=== PATIENT | male | born 1960 | race African-American/Black ===

== ENCOUNTER 2017-08-23 11:19 | Emergency (ER) | payer MEDICAID ==
[~2017-08-23] VITALS: Ht 180.3 cm; Wt 86.5 kg
[~2017-08-23 11:19] MED LIST: ADDE10 PO; ASPI81 PO; CLON1 PO; LISI-662 PO
[2017-08-23] MEDS ORDERED: KETOROLAC TROMETHAMINE 60 MG/2 ML VIAL IM ONE (13:15)
[2017-08-23 15:15] VITALS: BP 138/86
== END 2017-08-23 15:23 | disposition home or self-care (01) ==
LOC: EMS 11:20
DX: S46.001A Unspecified injury of muscle(s) and tendon(s) of the rotator cuff of right shoulder, initial encounter (principal); I10 Essential (primary) hypertension; F17.210 Nicotine dependence, cigarettes, uncomplicated; F12.90 Cannabis use, unspecified, uncomplicated; W01.0XXA Fall on same level from slipping, tripping and stumbling without subsequent striking against object, initial encounter; Y93.02 Activity, running; Y92.828 Other wilderness area as the place of occurrence of the external cause; Y99.8 Other external cause status
CPT/HCPCS: 73030; 96372; 99284; J1885

== ENCOUNTER 2018-08-12 19:25 | Emergency (ER) | payer MEDICAID ==
[~2018-08-12] VITALS: Ht 182.9 cm; Wt 93.0 kg
[~2018-08-12 19:25] MED LIST changes: -ADDE10 PO; -ASPI81 PO; -CLON1 PO
[2018-08-12] MEDS ORDERED: LIDOCAINE 1% 20 ML VIAL *UNAVILABLE INJ ONE (19:45)
[2018-08-12] MEDS: PERTUSS(ACELL),DIPH,TET VAC/PF 0.5 ML VIAL IM ONE (19:50)
[2018-08-12 19:51] LABS: BASOPHILS % (AUTO) 0.9 % (0.0-2.0); EOSINOPHILS % (AUTO) 3.6 % (1.0-6.0); HEMATOCRIT 41.2 % (41-53); HEMOGLOBIN 14.3 g/dL (13.5-17.5); LYMPHOCYTES # (AUTO) 2.7 K/uL (1.0-4.8); LYMPHOCYTES % (AUTO) 35.8 % (22.0-44.0); MEAN CORPUSCULAR HEMOGLOBIN 31.7 pg (26.0-34.0); MEAN CORPUSCULAR HGB CONC 34.7 G/dL (31.0-37.0); MEAN CORPUSCULAR VOLUME 91 fL (80-100); MONOCYTES # (AUTO) 0.9 K/uL (0.1-1.0); MONOCYTES % (AUTO) 11.7 % (2.0-9.0); NEUTROPHILS # (AUTO) 3.7 K/uL (1.8-7.7); PLATELET COUNT (AUTO) 228 K/uL (150-450); RED BLOOD CELL COUNT(AUTO) 4.52 MIL/uL (4.50-5.90); RED CELL DISTRIBUTION WIDTH 12.6 % (11.5-14.5)
[2018-08-12] MEDS: SODIUM CHLORIDE 0.9% 1,000 ML IV ONE (19:51)
[2018-08-12] MEDS: LIDOCAINE 1% 10 ML VIAL INJ ONE (19:51)
[2018-08-12] MEDS: CeFAZolin 1 GM/DEXTROSE 50 ML IV ONE (20:00)
[2018-08-12 20:01] LABS: ANION GAP 13 mmol/L (8-16); CALCIUM, TOTAL 8.8 mg/dL (8.8-10.5); CARBON DIOXIDE 26 mmol/L (22-29); CHLORIDE 108 mmol/L (98-107); CREATININE 1.02 mg/dL (0.60-1.30); GLOMERULAR FILTR. RATE CALC > 60 mL/min (>60); GLUCOSE,RANDOM 128 mg/dL (70-110); POTASSIUM 3.4 mmol/L (3.5-5.1); SODIUM SERUM 147 mmol/L (136-145); UREA NITROGEN, BLOOD 15 mg/dL (7-18)
[2018-08-12 20:06] LABS: ALANINE AMINOTRANSFERASE 102 U/L (12-78); ALBUMIN 3.8 g/dL (3.4-5.0); ALKALINE PHOSPHATASE 131 U/L (46-116); ASPARTATE AMINOTRANSFERASE 76 U/L (15-37); BILIRUBIN,TOTAL 0.6 mg/dL (0.1-1.0); TOTAL PROTEIN, SERUM 7.9 g/dL (6.4-8.2)
[2018-08-12 20:12] LABS: PROTHROMBIN TIME 10.3 SEC (9.4-11.6)
[2018-08-12] MEDS: HYDROCODONE/ACETAMINOPHEN 5-325 MG TABLET PO ONE (21:10)
[2018-08-12] MEDS: POTASSIUM CHLORIDE 20 MEQ ER TABLET PO ONE (21:24)
[2018-08-12 23:27] VITALS: BP 138/85
== END 2018-08-13 00:10 | disposition home or self-care (01) ==
LOC: EMS 19:26
DX: S61.411A Laceration without foreign body of right hand, initial encounter (principal); I10 Essential (primary) hypertension; F12.90 Cannabis use, unspecified, uncomplicated; F17.210 Nicotine dependence, cigarettes, uncomplicated; W45.8XXA Other foreign body or object entering through skin, initial encounter; Y93.89 Activity, other specified; Y92.89 Other specified places as the place of occurrence of the external cause; Y99.8 Other external cause status
CPT/HCPCS: 12002; 36415; 73130; 80053; 85025; 85610; 85730; 90471; 90715; 96365; 99285; G0480; J0690; J3490; J7030

== ENCOUNTER 2021-12-02 00:04 | Emergency (ER) | payer MEDICAID, OTHER ==
[~2021-12-02] VITALS: Ht 182.9 cm; Wt 77.3 kg
[~2021-12-02 00:04] MED LIST changes: -LISI-662 PO; +LISI-894 PO
[2021-12-02 00:50] VITALS: BP 147/86
[2021-12-02] MEDS ORDERED: OLANZapine 5 MG TABLET PO ONE (01:15)
[2021-12-02 01:21] LABS: GLUCOMETER DEV NAME(LOC) ERT.5; GLUCOSE,POINT OF CARE 116 MG/DL (70-110)
== END 2021-12-02 01:28 | disposition home or self-care (01) ==
LOC: EMS 00:07
DX: F25.0 Schizoaffective disorder, bipolar type (principal); I10 Essential (primary) hypertension; F12.90 Cannabis use, unspecified, uncomplicated; F17.210 Nicotine dependence, cigarettes, uncomplicated; Z76.0 Encounter for issue of repeat prescription
CPT/HCPCS: 82962; 99283

== ENCOUNTER 2024-12-25 16:38 | Emergency (ER) | payer SELFPAY ==
[~2024-12-25] VITALS: Ht 182.9 cm; Wt 81.8 kg
[2024-12-25] MEDS ORDERED: METF-1211 PO (16:54)
[2024-12-25] MEDS ORDERED: BUPR1TAB45 SL (16:54)
[2024-12-25 17:12] VITALS: TEMP 98
[2024-12-25] MEDS: ACETAMINOPHEN 500 MG TABLET PO ONE (17:51)
[2024-12-25 18:54] VITALS: BP 150/93; PULSE 82; RESP 18; O2SAT 98
== END 2024-12-25 18:58 | disposition home or self-care (01) ==
LOC: EMS 16:38
DX: S09.90XA Unspecified injury of head, initial encounter (principal); E11.9 Type 2 diabetes mellitus without complications; F12.90 Cannabis use, unspecified, uncomplicated; I10 Essential (primary) hypertension; F17.210 Nicotine dependence, cigarettes, uncomplicated; Z02.89 Encounter for other administrative examinations; Z79.84 Long term (current) use of oral hypoglycemic drugs; Z79.899 Other long term (current) drug therapy; W19.XXXA Unspecified fall, initial encounter; Y93.89 Activity, other specified; Y92.89 Other specified places as the place of occurrence of the external cause; Y99.8 Other external cause status
CPT/HCPCS: 70450; 72125; 99284

== ENCOUNTER 2025-03-25 16:32 | Inpatient (IN) | payer MEDICAID ==
[~2025-03-25] VITALS: Ht 182.9 cm; Wt 81.5 kg
[~2025-03-25 16:32] MED LIST changes: +BUPR1TAB45 SL; +METF-1211 PO
[2025-03-25] MEDS: SODIUM CHLORIDE 0.9% 1,000 ML IV ONE (17:34)
[2025-03-25] MEDS: NITROGLYCERIN 2% (1 GM=INCH) OINTMENT PACKET TP ONE (17:34)
[2025-03-25 17:53] LABS: BASOPHILS % (AUTO) 0.3 % (0.0-2.0); EOSINOPHILS % (AUTO) 0.1 % (1.0-6.0); HEMOGLOBIN 15.7 g/dL (13.5-17.5); LYMPHOCYTES # (AUTO) 1.1 K/uL (1.0-4.8); LYMPHOCYTES % (AUTO) 12.2 % (22.0-44.0); MEAN CORPUSCULAR HEMOGLOBIN 29.3 pg (26.0-34.0); MEAN CORPUSCULAR HGB CONC 32.8 G/dL (31.0-37.0); MEAN CORPUSCULAR VOLUME 89 fL (80-100); MONOCYTES # (AUTO) 0.4 K/uL (0.1-1.0); MONOCYTES % (AUTO) 4.9 % (2.0-9.0); NEUTROPHILS # (AUTO) 7.2 K/uL (1.8-7.7); NEUTROPHILS % (AUTO) 82.5 % (40.0-70.0); PLATELET COUNT (AUTO) 278 K/uL (150-450); RED BLOOD CELL COUNT(AUTO) 5.36 MIL/uL (4.50-5.90); RED CELL DISTRIBUTION WIDTH 13.9 % (11.5-14.5); WHITE BLOOD COUNT (AUTO) 8.7 K/uL (4.5-11.0)
[2025-03-25 17:56] LABS: ANION GAP 9 mmol/L (8-16); CALCIUM, TOTAL 9.7 mg/dL (8.8-10.5); CARBON DIOXIDE 28 mmol/L (22-29); CHLORIDE 97 mmol/L (98-107); CREATININE 0.84 mg/dL (0.60-1.30); GLOMERULAR FILTR. RATE CALC > 60 mL/min (>60); GLUCOSE,RANDOM 134 mg/dL (70-110); POTASSIUM 3.5 mmol/L (3.5-5.1); SODIUM SERUM 134 mmol/L (136-145); UREA NITROGEN, BLOOD 8 mg/dL (7-18)
[2025-03-25 18:01] LABS: GLUCOMETER DEV NAME(LOC) ER.7; GLUCOSE,POINT OF CARE 129 MG/DL (70-110)
[2025-03-25 18:02] LABS: ALBUMIN 3.6 g/dL (3.4-5.0); BILIRUBIN,DIRECT 0.2 mg/dL (0.00-0.20); BILIRUBIN,TOTAL 0.7 mg/dL (0.1-1.0); TOTAL PROTEIN, SERUM 8.3 g/dL (6.4-8.2)
[2025-03-25 18:05] LABS: PROTHROMBIN TIME 10.9 SEC (9.4-11.6)
[2025-03-25 18:09] LABS: CREATINE KINASE, TOTAL ONLY 372 U/L (39-308); TROPONIN I-HIGH SENSITIVITY 19 ng/L (<76)
[2025-03-25 18:09] LABS: LACTIC ACID 1.3 mmol/L (0.4-2.0)
[2025-03-25 18:14] LABS: B-TYPE NATRIURETIC PEPTIDE 162 pg/mL (0-100)
[2025-03-25] MEDS: BUPRENORPHINE HCL/NALOXONE HCL 2-0.5 MG SUBLINGUAL TABLET SL ONE (18:22)
[2025-03-25 19:07] LABS: APPEARANCE,URINE CLEAR (CLEAR); BILIRUBIN,URINE NEGATIVE (NEGATIVE); COLOR,URINE LIGHT YELLOW (YELLOW); GLUCOSE, URINE (UA) NEGATIVE (NEGATIVE); LEUKOCYTE ESTERASE ,URINE SMALL (NEGATIVE); NITRATE,URINE NEGATIVE (NEGATIVE); OCCULT BLOOD,URINE NEGATIVE (NEGATIVE); PH,URINE 6.5 (5.0-8.0); PROTEIN,URINE NEGATIVE (NEGATIVE); SPECIFIC GRAVITIY, URINE 1.017 (1.003-1.030); UROBILINOGEN,URINE <=1.0 mg/dL (<=1.0)
[2025-03-25 19:09] LABS: PH,URINE DRUG SCREEN 6.5 (5.0-8.0)
[2025-03-25 19:13] LABS: ALCOHOL, URINE DRUG SCREEN NEGATIVE (NEGATIVE); AMPHET/METH SCREEN,URINE POSITIVE (NEGATIVE); BARBITURATE SCREEN, URINE NEGATIVE (NEGATIVE); BENZODIAZEPINES SCREEN,URINE NEGATIVE (NEGATIVE); CANNABINOID SCREEN,URINE NEGATIVE (NEGATIVE); COCAINE SCREEN,URINE NEGATIVE (NEGATIVE); METHADONE SCREEN, URINE NEGATIVE (NEGATIVE); OPIATE SCREEN,URINE NEGATIVE (NEGATIVE); PHENCYCLIDINE SCREEN,URINE NEGATIVE (NEGATIVE)
[2025-03-25 19:22] LABS: RBC,URINE 0-2 /HPF (0-2)
[2025-03-25 19:23] LABS: BACTERIA,URINE Few /HPF (None Seen)
[2025-03-25 19:30] LABS: SQUAMOUS EPITHELIAL CELL,UR Few /LPF (None Seen)
[2025-03-25 19:31] LABS: URINALYSIS COMMENT Rare Trich. seen.
[2025-03-25] MEDS ORDERED: ONDANSETRON HCL 4 MG/2 ML VIAL IVP PRN (21:15)
[2025-03-25] MEDS: LABETALOL HCL 100 MG TABLET PO SCH (21:45)
[2025-03-25] MEDS: ATORVASTATIN CALCIUM 40 MG TABLET PO ONE (21:45)
[2025-03-25] MEDS: ASPIRIN 81 MG CHEWABLE TABLET PO SCH (21:45)
[2025-03-25 22:30] VITALS: BP 147/61; PULSE 62; RESP 17; TEMP 98.4; O2SAT 97
[2025-03-25] MEDS ORDERED: NALOXONE HCL 1 MG/ML 2 ML SYRINGE IVP PRN ×2 (22:45)
[2025-03-25] MEDS ORDERED: DEXTROSE 50%-WATER 25 GM/50 ML SYRINGE IVP PRN (23:00)
[2025-03-25] MEDS: HEPARIN SODIUM,PORCINE 5,000 UNITS/ML VIAL SQ SCH (23:50)
[2025-03-25] MEDS: INSULIN LISPRO 100 UNITS/ML SQ PRN (23:54)
[2025-03-26 00:09] VITALS: BP 155/63; PULSE 62; RESP 18; TEMP 98.4; O2SAT 98
[2025-03-26 00:09] LABS: TROPONIN I-HIGH SENSITIVITY 21 ng/L (<76)
[2025-03-26] MEDS: NALOXONE HCL 0.4 MG/ML VIAL SQ ONE (00:29)
[2025-03-26 04:39] VITALS: BP 150/79; PULSE 82; RESP 16; TEMP 98.6; O2SAT 99
[2025-03-26] MEDS: ACETAMINOPHEN 325 MG TABLET PO PRN (06:20)
[2025-03-26 06:51] LABS: BASOPHILS % (AUTO) 0.8 % (0.0-2.0); EOSINOPHILS % (AUTO) 0.2 % (1.0-6.0); HEMATOCRIT 44.1 % (41-53); HEMOGLOBIN 14.6 g/dL (13.5-17.5); LYMPHOCYTES # (AUTO) 1.2 K/uL (1.0-4.8); LYMPHOCYTES % (AUTO) 17.9 % (22.0-44.0); MEAN CORPUSCULAR HEMOGLOBIN 29.2 pg (26.0-34.0); MEAN CORPUSCULAR HGB CONC 33.1 G/dL (31.0-37.0); MEAN CORPUSCULAR VOLUME 88 fL (80-100); MONOCYTES # (AUTO) 0.6 K/uL (0.1-1.0); MONOCYTES % (AUTO) 8.2 % (2.0-9.0); NEUTROPHILS % (AUTO) 72.9 % (40.0-70.0); PLATELET COUNT (AUTO) 282 K/uL (150-450); RED BLOOD CELL COUNT(AUTO) 4.99 MIL/uL (4.50-5.90); RED CELL DISTRIBUTION WIDTH 13.8 % (11.5-14.5); WHITE BLOOD COUNT (AUTO) 6.9 K/uL (4.5-11.0)
[2025-03-26 07:08] LABS: ANION GAP 9 mmol/L (8-16); CALCIUM, TOTAL 9.5 mg/dL (8.8-10.5); CARBON DIOXIDE 26 mmol/L (22-29); CHLORIDE 96 mmol/L (98-107); CREATININE 0.69 mg/dL (0.60-1.30); GLOMERULAR FILTR. RATE CALC > 60 mL/min (>60); GLUCOSE,RANDOM 130 mg/dL (70-110); POTASSIUM 3.4 mmol/L (3.5-5.1); SODIUM SERUM 131 mmol/L (136-145); UREA NITROGEN, BLOOD 10 mg/dL (7-18)
[2025-03-26 08:59] VITALS: BP 151/73; PULSE 67; RESP 18; TEMP 98.1; O2SAT 99
[2025-03-26 09:10] LABS: TROPONIN I-HIGH SENSITIVITY 20 ng/L (<76)
[2025-03-26] MEDS: DOCUSATE SODIUM 100 MG CAPSULE PO SCH (10:01)
[2025-03-26 12:26] VITALS: BP 157/76; PULSE 66; RESP 18; TEMP 99.1; O2SAT 99
[2025-03-26] MEDS: POTASSIUM CHLORIDE 20 MEQ ER TABLET PO ONE (12:32)
[2025-03-26 16:56] VITALS: BP 144/82; RESP 18; TEMP 98.1; O2SAT 98
[2025-03-26 18:12] LABS: GLUCOMETER DEV NAME(LOC) 5N.1D; GLUCOSE,POINT OF CARE 153 MG/DL (70-110)
[2025-03-26 19:57] VITALS: BP 148/77; PULSE 67; RESP 15; TEMP 98.6; O2SAT 98
[2025-03-26] MEDS: ATORVASTATIN CALCIUM 40 MG TABLET PO SCH (21:35)
[2025-03-27] VITALS: BP 135/86; PULSE 61; RESP 18; TEMP 97.8; O2SAT 100
[2025-03-27 06:44] LABS: BASOPHILS % (AUTO) 0.5 % (0.0-2.0); EOSINOPHILS % (AUTO) 0.4 % (1.0-6.0); HEMATOCRIT 48.1 % (41-53); LYMPHOCYTES # (AUTO) 1.7 K/uL (1.0-4.8); MEAN CORPUSCULAR HEMOGLOBIN 29.3 pg (26.0-34.0); MEAN CORPUSCULAR HGB CONC 33.2 G/dL (31.0-37.0); MEAN CORPUSCULAR VOLUME 88 fL (80-100); MONOCYTES # (AUTO) 0.8 K/uL (0.1-1.0); MONOCYTES % (AUTO) 10.9 % (2.0-9.0); NEUTROPHILS # (AUTO) 4.9 K/uL (1.8-7.7); NEUTROPHILS % (AUTO) 65.2 % (40.0-70.0); PLATELET COUNT (AUTO) 275 K/uL (150-450); RED BLOOD CELL COUNT(AUTO) 5.45 MIL/uL (4.50-5.90); RED CELL DISTRIBUTION WIDTH 13.8 % (11.5-14.5); WHITE BLOOD COUNT (AUTO) 7.5 K/uL (4.5-11.0)
[2025-03-27 06:49] LABS: ANION GAP 12 mmol/L (8-16); CARBON DIOXIDE 25 mmol/L (22-29); CHLORIDE 99 mmol/L (98-107); CREATININE 0.75 mg/dL (0.60-1.30); GLOMERULAR FILTR. RATE CALC > 60 mL/min (>60); GLUCOSE,RANDOM 107 mg/dL (70-110); POTASSIUM 3.8 mmol/L (3.5-5.1); SODIUM SERUM 136 mmol/L (136-145); UREA NITROGEN, BLOOD 13 mg/dL (7-18)
[2025-03-27 08:00] VITALS: BP 158/95; PULSE 70; RESP 18; TEMP 98.2; O2SAT 98
[2025-03-27] MEDS: LOSARTAN POTASSIUM 25 MG TABLET PO SCH (11:38)
[2025-03-27 12:00] VITALS: BP 144/83; PULSE 77; RESP 18; TEMP 97.9; O2SAT 97
[2025-03-27] MEDS: BICTEGRAV/EMTRICIT/TENOFOV ALA 50-200-25 MG TABLET PO SCH (13:51)
[2025-03-27 16:04] VITALS: BP 154/98; PULSE 71; RESP 18; TEMP 98; O2SAT 99
[2025-03-27] MEDS ORDERED: ASPI-1450 PO (17:31)
[2025-03-27] MEDS ORDERED: LOSA-382 PO (17:31)
[2025-03-27] MEDS ORDERED: ATOR40TA71 PO (17:31)
[2025-03-27] MEDS ORDERED: FURO20TA5 PO (17:31)
[2025-03-27] MEDS ORDERED: SPIR-37 PO (17:31)
[2025-03-27] MEDS ORDERED: BICT1TAB PO (17:34)
[2025-03-27] MEDS: METOPROLOL TARTRATE 25 MG TABLET PO ONE (17:49)
[2025-03-27 20:21] LABS: GLUCOMETER DEV NAME(LOC) 5N.2C; GLUCOSE,POINT OF CARE 121 MG/DL (70-110)
[2025-03-27] MEDS ORDERED: METOPROLOL TARTRATE 25 MG TABLET PO SCH (21:00)
[2025-03-28] MEDS ORDERED: SPIRONOLACTONE 25 MG TABLET PO SCH (09:00)
[2025-03-28 20:08] LABS: GLUCOMETER DEV NAME(LOC) 5S.2D; GLUCOSE,POINT OF CARE 167 MG/DL (70-110)
[2025-03-28 20:08] LABS: GLUCOMETER DEV NAME(LOC) 5S.2D; GLUCOSE,POINT OF CARE 136 MG/DL (70-110)
[2025-03-28 20:08] LABS: GLUCOMETER DEV NAME(LOC) 5S.2D; GLUCOSE,POINT OF CARE 148 MG/DL (70-110)
[2025-03-28 20:08] LABS: GLUCOMETER DEV NAME(LOC) 5S.2D; GLUCOSE,POINT OF CARE 124 MG/DL (70-110)
[2025-03-28 20:09] LABS: GLUCOMETER DEV NAME(LOC) 5S.2D; GLUCOSE,POINT OF CARE 139 MG/DL (70-110)
[2025-03-28 20:09] LABS: GLUCOMETER DEV NAME(LOC) 5S.2D; GLUCOSE,POINT OF CARE 141 MG/DL (70-110)
== END 2025-03-27 18:20 | disposition home or self-care (01) | DRG 52 ==
LOC: EMS 16:32 → EDH 21:12 → 5S 22:09
PROVIDERS: ADMIT Internal Medicine; ATTEND Internal Medicine
DX: G92.8 Other toxic encephalopathy (principal); I42.9 Cardiomyopathy, unspecified; I50.22 Chronic systolic (congestive) heart failure; I11.0 Hypertensive heart disease with heart failure; E11.9 Type 2 diabetes mellitus without complications; E78.5 Hyperlipidemia, unspecified; E87.6 Hypokalemia; I44.7 Left bundle-branch block, unspecified; F17.210 Nicotine dependence, cigarettes, uncomplicated; M54.50 Low back pain, unspecified; F19.139 Other psychoactive substance abuse with withdrawal, unspecified; Z79.899 Other long term (current) drug therapy
CPT/HCPCS: 70450; 71045; 80048; 80076; 80307; 81001; 82550; 82962; 83605; 83735; 83880; 84484; 85025; 85610; 85730; 87086; 93005; 93306; 93880; 99285; J1644; 36415-L1; 36415-TC